=== PATIENT | female | born 1995 | race Caucasian/White ===

== ENCOUNTER 2019-05-21 11:57 | Emergency (ER) | payer OTHER ==
--- NOTE | 2019-05-21 13:04 | ER Document Report ---
ED Medical Screen (RME) - General Chief Complaint: Urinary Problem Stated Complaint: URINARY PROBLEM Time Seen by Provider: 05/21/19 12:58 Primary Care Provider: NATHAN CHIRINOS MD [Primary Care Provider] - Follow up as needed Notes: HPI: 24-year-old female presenting to the emergency department stating "I am having blood with urination and bowel movements and also vaginally". Patient states that she has moved her bowels several times in the last 24 hours, states that she has seen some blood with the bowel movements. Has not had a bowel movement of just blood. States also when she wipes with urinating or when she urinates she sees some blood in the toilet. No clots. Patient has Nexplanon and had not had a menstrual cycle in the last 2 years. She stated she started having vaginal bleeding yesterday as well. States that she has not had to use tampons or menstrual pads because it is not significantly heavy. Complains of mild cramping in the lower pelvis. No fever nausea vomiting I have greeted and performed a rapid initial assessment of this patient. A comprehensive ED assessment and evaluation of the patient, analysis of test results and completion of the medical decision making process will be conducted by additional ED providers PHYSICAL EXAMINATION: GENERAL: Well-appearing, well-nourished and in no acute distress. HEAD: Atraumatic, normocephalic. EYES: sclera anicteric, conjunctiva are normal. ENT: Moist mucous membranes. NECK: Normal range of motion LUNGS: Normal work of breathing HEART: 2+ radial pulses bilaterally ABD: limited by positioning for exam in triage. No reproducible abdominal pain on palpation. Pelvic and rectal exam deferred in triage EXTREMITIES: no pitting or edema. No cyanosis. NEUROLOGICAL: No focal neurological deficits. Moves all extremities spontaneou sly and on command. PSYCH: Normal mood, normal affect. SKIN: Warm, Dry, normal turgor, no rashes or lesions noted. - Related Data Allergies/Adverse Reactions: No Known Allergies Allergy (Unverified 05/21/19 12:58) Physical Exam - Vital signs Vitals: Temp Pulse Resp BP Pulse Ox 98.0 F 79 16 125/78 100 05/21/19 12:57 05/21/19 12:57 05/21/19 12:57 05/21/19 12:57 05/21/19 12:57 Course - Vital Signs Vital signs: Temp Pulse Resp BP Pulse Ox 98.0 F 79 16 125/78 100 05/21/19 12:57 05/21/19 12:57 05/21/19 12:57 05/21/19 12:57 05/21/19 12:57 Doctor's Discharge - Discharge Referrals: NATHAN CHIRINOS MD [Primary Care Provider] - Follow up as needed
--- NOTE | 2019-05-21 13:39 | ER Document Report ---
ED General <JEANA KIM - Last Filed: 05/21/19 15:28> - General TRAVEL OUTSIDE OF THE [place] IN LAST 30 DAYS: No <RIGO CONTRERAS - Last Filed: 05/21/19 16:30> - General Chief Complaint: Bloody Stools Stated Complaint: URINARY PROBLEM Time Seen by Provider: 05/21/19 12:58 Primary Care Provider: NATHAN CHIRINOS MD [COMMUNITY BASED STAFF] - Follow up as needed Notes: Patient is a 24-year-old female with no significant past medical history who presents to the emergency department with a chief complaint of blood per rectum and blood per vagina that began yesterday. She states she is having normal regular bowel movements however she noted some bright red and dark red blood mixed with the stool yesterday. She denies any pain with bowel movements. She admits to some vague lower abdominal/pelvic discomfort today. She also notes that every time she has a bowel movement she gets bright red blood from the vagina but only with bowel movements. She denies wearing any pads or tampons as she states "it is not like that", reiterating that it is only with bowel movements that she bleeds from the vagina. She does have a Nexplanon in place and has unprotected sex. She states she is noticed a little bit of difference in odor of her normal vaginal discharge but otherwise normal. Denies any pain with bowel movement. (RIGO CONTRERAS) - Related Data Allergies/Adverse Reactions: No Known Allergies Allergy (Unverified 05/21/19 12:58) Past Medical History - Social History Smoking Status: Unknown if Ever Smoked Family History: None Patient has suicidal ideation: No Patient has homicidal ideation: No <RIGO CONTRERAS - Last Filed: 05/21/19 16:30> Review of Systems - Review of Systems Gastrointestinal: Abdominal pain, Blood streaked bowels Genitourinary: Pain, Other - Vaginal bleeding Female Genitourinary: Vaginal bleeding -: Yes All other systems reviewed and negative <RIGO CONTRERAS - Last Filed: 05/21/19 16:30> Physical Exam - General General appearance: Appears well In distress: None - Respiratory Respiratory status: No respiratory distress Chest status: Nontender Breath sounds: Normal Chest palpation: Normal - Cardiovascular Rhythm: Regular Heart sounds: Normal auscultation - Abdominal Inspection: Normal Distension: No distension Bowel sounds: Normal Tenderness: Nontender Organomegaly: No organomegaly - Back Back: Normal, Nontender. No: CVA tenderness - Neurological Neuro grossly intact: Yes Cognition: Normal Orientation: AAOx4 [place] Coma Scale Eye Opening: Spontaneous [place] Coma Scale Verbal: Oriented [place] Coma Scale Motor: Obeys Commands [place] Coma Scale Total: 15 Speech: Normal Motor strength normal: LUE, RUE, LLE, RLE Sensory: Normal - Psychological Associated symptoms: Normal affect, Normal mood - Skin Skin Temperature: Warm Skin Moisture: Dry Skin Color: Normal <RIGO CONTRERAS - Last Filed: 05/21/19 16:30> - Vital signs Vitals: Temp Pulse Resp BP Pulse Ox 98.0 F 79 16 125/78 100 05/21/19 12:57 05/21/19 12:57 05/21/19 12:57 05/21/19 12:57 05/21/19 12:57 Course - Laboratory Result Diagrams: 05/21/19 13:18 05/21/19 13:18 <JEANA KIM - Last Filed: 05/21/19 15:28> - Laboratory Result Diagrams: 05/21/19 13:18 05/21/19 13:18 <RIGO CONTRERAS - Last Filed: 05/21/19 16:30> - Re-evaluation Re-evalutation: 05/21/19 16:26 No significant genital/rectal pathology reported on exam from nurse practitioner colleague, per patient's request for female. She will be referred to GI for further investigation and management. She will follow-up with her [facility]ISTER re garding her dysfunctional uterine bleeding and small left ovarian cyst. She was treated here today for a yeast infection and sent home with a prescription for bacterial vaginosis, pending GC cultures. Discussed with her the importance of outpatient follow-up and advised that she return here or any ER immediately with any new, persistent or worsening symptoms. She verbalized understood and agree d. (RIGO CONTRERAS) - Vital Signs Vital signs: Temp Pulse Resp BP Pulse Ox 98.0 F 79 16 125/78 100 05/21/19 12:57 05/21/19 12:57 05/21/19 12:57 05/21/19 12:57 05/21/19 12:57 - Laboratory Laboratory results interpreted by me: 05/21/19 13:18 Urine Blood LARGE H Ur Leukocyte Esterase TRACE H Urine Ascorbic Acid 20 H Procedures - Pelvic Exam Pelvic exam Cultures obtained: Yes Wet prep obtained: Yes <JUDYJEANA - Last Filed: 05/21/19 15:28> - Pelvic Exam Pelvic exam Notes: 05/21/19 15:28 Patient requested a female to perform her pelvic examination. This was performed by myself as well as the PCT Anderia assisting. Pelvic exam was explained and distended by the patient prior to examination. Patient's external genitalia was unremarkable. Patient did tolerate the insertion of the speculum fairly well with minimal pain. Was able to visualize the cervix. Patient did have a mild to moderate amount of dark red blood around the cervix. This was removed with large swabs. I did obtain a wet mount as well as a gonorrhea and Chlamydia cultures. No significant amount of discharge. (JEANA KIM) Discharge <JEANA KIM - Last Filed: 05/21/19 15:28> <RIGO CONTRERAS - Last Filed: 05/21/19 16:30> - Discharge Clinical Impression: Vaginal bleeding, Rectal bleeding Condition: Stable Disposition: HOME, SELF-CARE Instructions: Vaginal Bleeding ([facility]), Rectal Bleeding, Unclear Cause ([facility]) Additional Instructions: Follow-up with your regular doctor in 2 to 3 days for reevaluation. Return here or any ER immediately with any new, persistent or worsening symptoms. Please also follow-up with your CLAY HOISTER and the listed parking assistant for further care and management. Prescriptions: Metronidazole [Flagyl] 500 mg PO Q12 7 Days #14 tablet Referrals: NATHAN CHIRINOS MD [COMMUNITY BASED STAFF] - Follow up as needed YOSSI MCALLISTER MD [NO LOCAL MD] - Follow up as needed
[2019-05-21 13:42] LABS: ABSOLUTE EOSINOPHILS # (AUTO) 0.1 10^3/uL (0.0-0.6); ABSOLUTE LYMPHOCYTES (AUTO) 2.1 10^3/uL (0.5-4.7); ABSOLUTE MONOCYTES (AUTO) 0.7 10^3/uL (0.1-1.4); ABSOLUTE NEUT (AUTO) 5.2 10^3/uL (1.7-8.2); APPEARANCE,URINE CLEAR; BASOPHILS % (AUTO) 0.3 % (0-2); BILIRUBIN,URINE NEGATIVE (NEGATIVE); COLOR,URINE YELLOW; EOSINOPHILS % (AUTO) 1.1 % (0-6); GLUCOSE, URINE NEGATIVE (NEGATIVE); HEMATOCRIT 40.9 % (36.0-47.0); HEMOGLOBIN 14.2 g/dL (12.0-15.5); KETONES,URINE NEGATIVE (NEGATIVE); LEUKOCYTE ESTERASE,URINE TRACE (NEGATIVE); LYMPHOCYTES % (AUTO) 26.1 % (13-45); MEAN CORPUSCULAR HEMOGLOBIN 30.7 pg (27.0-33.4); MEAN CORPUSCULAR HGB CONC 34.7 g/dL (32.0-36.0); MEAN CORPUSCULAR VOLUME 89 fl (80-97); MONOCYTES % (AUTO) 8.3 % (3-13); NITRITE,URINE NEGATIVE (NEGATIVE); PLATELET COUNT 220 10^3/uL (150-450); PROTEIN,URINE NEGATIVE (NEGATIVE); RED BLOOD COUNT 4.62 10^6/uL (3.72-5.28); RED CELL DISTRIBUTION WIDTH 13.5 % (11.5-14.0); SEGMENTED NEUTROPHILS % (AUTO) 64.2 % (42-78); TOTAL CELLS COUNTED % (AUTO) 100 %; URINE SPECIFIC GRAVITY 1.017; UROBILINOGEN,URINE NEGATIVE mg/dL (<2.0); WHITE BLOOD COUNT 8.1 10^3/uL (4.0-10.5)
[2019-05-21 13:44] LABS: PROTHROMBIN TIME 13.2 SEC (11.4-15.4)
[2019-05-21 14:01] LABS: ALBUMIN 4.9 g/dL (3.5-5.0); ALKALINE PHOSPHATASE 56 U/L (38-126); ANION GAP 10 (5-19); ASPARTATE AMINO TRANSFERASE 31 U/L (14-36); BILIRUBIN,DIRECT 0.2 mg/dL (0.0-0.4); BILIRUBIN,TOTAL 0.4 mg/dL (0.2-1.3); BLOOD UREA NITROGEN 14 mg/dL (7-20); CALCIUM 9.8 mg/dL (8.4-10.2); CARBON DIOXIDE 26 mmol/L (22-30); CHLORIDE 104 mmol/L (98-107); GLUCOSE 91 mg/dL (75-110); POTASSIUM 4.4 mmol/L (3.6-5.0); TOTAL PROTEIN 8.2 g/dL (6.3-8.2)
--- NOTE | 2019-05-21 14:37 | RADIOLOGY REPORT (SQ) ---
EXAM DESCRIPTION: U/S NON OB PEL TV W/DOPPLER COMPLETED DATE/TIME: 05/21/2019 2:17 pm REASON FOR STUDY: pelvic pain, bleeding COMPARISON: None. TECHNIQUE: Dynamic and static grayscale images acquired of the pelvis via transvaginal approach and recorded on PACS. Additional selected color Doppler and spectral images recorded. LIMITATIONS: None. FINDINGS: UTERUS: Contour normal. No mass. ENDOMETRIAL STRIPE: No focal or generalized thickening. No masses. CERVIX: The cervix measures 2.2 cm in length. No nabothian cysts. RIGHT OVARY AND DOPPLER: Normal size. No worrisome masses. Normal arterial vascular flow without evid ence for torsion. LEFT OVARY AND DOPPLER: A 3.1 x 2.7 x 2.4 cm cyst. A small follicle lies adjacent to the cyst. Nor mal arterial vascular flow without evidence for torsion. FREE FLUID: None noted. OTHER: No other significant finding. MEASUREMENTS: UTERUS: 7.3 x 4.1 x 3.3 cm. ENDOMETRIAL STRIPE: 5.0 mm RIGHT OVARY: 3.0 x 2.7 x 1.7 cm LEFT OVARY: 4.2 x 4.1 x 2.9 cm IMPRESSION: 1. Left ovarian cyst. TECHNICAL DOCUMENTATION: JOB ID: [id number] [employer]- All Rights Reserved Rev-09/02 Reading location - IP/workstation name: [email or web address]
[2019-05-21 15:52] LABS: BACTERIA (WET MOUNT) 4+ BACTERIA SEEN; T.VAGINALIS (WET MOUNT) NO TRICHOMONAS SEEN; WBCS (WET MOUNT) 1+ WBCS SEEN; YEAST (WET MOUNT) YEAST SEEN
[2019-05-21 15:53] LABS: EPITHELIALS (WET MOUNT) 3+ EPITHELIALS SEEN; RBCS (WET MOUNT) RARE RBCS SEEN
[2019-05-21] MEDS ORDERED: FLUCONAZOLE 100 MG TABLET PO ONE (16:22)
[2019-05-21 16:39] LABS: CHLAM PCR NOT DETECTED (NOT DETECT)
[2019-05-21 16:40] VITALS: BP 125/68
== END 2019-05-21 17:05 | disposition home or self-care (01) ==
LOC: ER 11:57
DX: K62.5 Hemorrhage of anus and rectum (principal); N93.8 Other specified abnormal uterine and vaginal bleeding; N83.202 Unspecified ovarian cyst, left side; B37.9 Candidiasis, unspecified; Z97.5 Presence of (intrauterine) contraceptive device
CPT/HCPCS: 36415; 76830; 80053; 81001; 81025; 85025; 85610; 87210; 87491; 87591; 93976; 99284